=== PATIENT | female | born 1990 | race African-American/Black ===

== ENCOUNTER 2019-04-26 19:57 | Emergency (ER) | payer BC ==
[~2019-04-26] VITALS: Ht 157.5 cm; Wt 54.4 kg
[2019-04-26 20:02] VITALS: BP 129/72; Ht 157.5 cm; Wt 54.4 kg
== END 2019-04-26 20:30 | disposition home or self-care (01) ==
LOC: ED 19:57
DX: N64.59 Other signs and symptoms in breast (principal); Z32.01 Encounter for pregnancy test, result positive